=== PATIENT | female | born 1950 | race African-American/Black ===

== ENCOUNTER 2018-05-27 06:14 | Inpatient (IN) ==
[2018-05-27 07:07] LABS: Basophils # 0.1 10*3/uL (0.0-0.2); Basophils % 1.2 % (0.0-0.8); Eosinophils # 0.1 10*3/uL (0.0-0.87); Eosinophils % 1.9 % (0.00-10.9); Hematocrit 41.9 VOL% (35.7-47.0); Hemoglobin 13.1 GM/DL (12.0-16.0); Immature Granulocytes % 0.2 %; Immature Granulocytes Absolute 0.01 #; Lymphocytes # 2.4 10*3/uL (1.4-4.0); Lymphocytes % 42.8 % (21.3-54.2); Mean Corpuscular HGB Conc 31.3 GM/DL (32-36); Mean Corpuscular Hemoglobin 30 PG (27-34); Mean Corpuscular Volume 94.8 FL (87-102); Mean Platelet Volume 12.7 FL (9.6-12.0); Monocytes # 0.7 10*3/uL (0.11-0.8); Monocytes % 11.6 % (1.7-12.7); Neutrophils # 2.4 10*3/uL (1.4-7.4); Neutrophils % 42.3 % (38.7-73.9); Platelet Count 223 T/CUMM (130-400); Red Blood Count 4.42 MC/CUMM (3.8-5.5); Red Cell Distribution Width 14.4 % (9.3-17.3); White Blood Count 5.7 T/CUMM (4-12)
[2018-05-27] MEDS ORDERED: MIDAZOLAM 2 MG/2 ML VIAL ONE (07:35)
[2018-05-27] MEDS ORDERED: fentaNYL 100 MCG/2 ML VIAL ONE (07:35)
[2018-05-27] MEDS ORDERED: LIDOCAINE 1% 20 ML VIAL ONE (08:07)
[2018-05-27] MEDS ORDERED: HEPARIN/NACL 0.9% 2 UNITS/ML 500 ML IV ONE ×3 (08:07→09:47)
[2018-05-27 08:25] LABS: Apearance,Urine CLEAR (Clear); Bacteria,Urine Occasional /HPF (Few); Bilirubin,Urine Negative (Negative); Blood, Urine Negative (Negative); Glucose,Urine (UA) Negative (Negative); Ketones,Urine Negative (Negative); Nitrite,Urine Negative (Negative); Protein,Urine Negative; RBC,Urine <1 /HPF (0-4); Squamous Epithelial Cell,Urine Occasional /HPF (0-10); Urine Color Yellow (Yellow); Urine Specific Gravity 1.014 (1.001-1.035); Urine Urobilinogen < 2.0 EU/DL (0.2-1.0); WBC,Urine 1 /HPF (0-6)
[2018-05-27] MEDS ORDERED: ISOPROTERENOL 1 MG/5 ML VIAL IV ONE (08:51)
[2018-05-27] MEDS ORDERED: HEPARIN/NACL 0.9% 2 UNITS/ML 1,000 ML IV ONE ×2 (09:18→13:25)
[2018-05-27] MEDS ORDERED: HEPARIN DRIP 25,000 UNITS/500 ML PREMIX IV ONE (09:47)
[2018-05-27] MEDS ORDERED: ACETAMINOPHEN 325 MG TABLET PO PRN (11:15)
[2018-05-27] MEDS ORDERED: ZALEPLON 5 MG CAPSULE PO PRN (11:15)
[2018-05-27] MEDS ORDERED: MORPHINE 4 MG/1 ML VIAL IV PRN (11:15)
[2018-05-27] MEDS ORDERED: ASPIRIN EC 325 MG TABLET PO ONE (11:15)
[2018-05-27] MEDS ORDERED: MORPHINE 10 MG/1 ML VIAL ONE (12:14)
[2018-05-27] MEDS ORDERED: PROPOFOL 200 MG/20 ML VIAL IV ONE (12:36)
[2018-05-27] MEDS ORDERED: ONDANSETRON 4 MG/2 ML VIAL ONE (12:36)
[2018-05-27] MEDS ORDERED: HEPARIN 10,000 UNIT/10 ML VIAL ONE (12:36)
[2018-05-27] MEDS ORDERED: PHENYLEPHRINE 10 MG/1 ML VIAL IV ONE (12:36)
[2018-05-27] MEDS ORDERED: PHENYLEPHRINE 1 MG/10 ML SYRINGE IV ONE (12:37)
[2018-05-27] MEDS ORDERED: SODIUM CHLORIDE 0.9% 250 ML IV ONE (12:37)
[2018-05-27] MEDS ORDERED: GLYCOPYRROLATE 0.4 MG/2 ML VIAL ONE (12:37)
[2018-05-27] MEDS ORDERED: PROTAMINE SULFATE 50 MG/5 ML VIAL IV ONE (12:37)
[2018-05-27] MEDS ORDERED: ETOMIDATE 40 MG/20 ML VIAL IV ONE (12:37)
[2018-05-27] MEDS ORDERED: SEVOFLURANE 1 UNIT/15 MINUTE INH ONE (12:37)
[2018-05-27] MEDS ORDERED: FUROSEMIDE 40 MG/4 ML VIAL IV ONE (12:45)
[2018-05-27] MEDS ORDERED: AMIODARONE 450 MG/9 ML VIAL IV ONE (12:59)
[2018-05-27] MEDS ORDERED: AMIODARONE 150 MG/3 ML VIAL ONE (13:00)
[2018-05-27] MEDS ORDERED: AMIODARONE INJ 450 MG in DEXTROSE 5% 241 ML IV SCH ×2 (13:00→19:00)
[2018-05-27] MEDS: MORPHINE 4 MG/1 ML VIAL IV PRN (13:02)
[2018-05-27] MEDS ORDERED: AMIODARONE INJ 150 MG in DEXTROSE 5% 100 ML IV ONE ×2 (13:03→14:55)
[2018-05-27] MEDS ORDERED: HYDROmorphone 2 MG/1 ML VIAL IV PRN (13:06)
[2018-05-27] MEDS ORDERED: LIDOCAINE 1%/EPI INJ 20 ML VIAL ONE (13:25)
[2018-05-27] MEDS: ONDANSETRON 4 MG/2 ML VIAL IV PRN ×2 (13:25→20:05)
[2018-05-27] MEDS ORDERED: diphenhydrAMINE CAP 25 MG CAPSULE PO ONE (13:29)
[2018-05-27] MEDS ORDERED: DIAZEPAM 5 MG TABLET PO ONE (13:29)
[2018-05-27] MEDS ORDERED: DEXTROSE 5% NACL 0.45% 1,000 ML IV SCH (15:00)
[2018-05-27] MEDS: ENOXAPARIN 40 MG/0.4 ML SYRINGE SUBCUT SCH (16:02)
[2018-05-27] MEDS: MAGNESIUM OXIDE 400 MG TABLET PO SCH (16:03)
[2018-05-27] MEDS: GEMFIBROZIL 600 MG TABLET PO SCH (16:03)
[2018-05-27] MEDS: CARVEDILOL 12.5 MG TABLET PO SCH ×2 (18:33→20:40)
[2018-05-28 06:09] LABS: Basophils % 0.4 % (0.0-0.8); Eosinophils % 0.4 % (0.00-10.9); Hematocrit 41.6 VOL% (35.7-47.0); Hemoglobin 13.2 GM/DL (12.0-16.0); Immature Granulocytes % 0.5 %; Immature Granulocytes Absolute 0.03 #; Lymphocytes # 1.6 10*3/uL (1.4-4.0); Lymphocytes % 29.3 % (21.3-54.2); Mean Corpuscular HGB Conc 31.7 GM/DL (32-36); Mean Corpuscular Hemoglobin 30 PG (27-34); Mean Corpuscular Volume 93.5 FL (87-102); Mean Platelet Volume 13.9 FL (9.6-12.0); Monocytes # 0.7 10*3/uL (0.11-0.8); Monocytes % 11.8 % (1.7-12.7); Neutrophils # 3.2 10*3/uL (1.4-7.4); Neutrophils % 57.6 % (38.7-73.9); Platelet Count 173 T/CUMM (130-400); Red Blood Count 4.45 MC/CUMM (3.8-5.5); Red Cell Distribution Width 14.3 % (9.3-17.3); White Blood Count 5.6 T/CUMM (4-12)
[2018-05-28 06:33] LABS: Osmolality,Calculated 273.8 MOS/KG (273-304); Potassium 4.2 MMOL/L (3.5-5.1)
[2018-05-28] MEDS: ASPIRIN EC 81 MG TABLET PO SCH (08:14)
[2018-05-28] MEDS: MAGNESIUM OXIDE 400 MG TABLET PO SCH (08:14)
[2018-05-28] MEDS: CHOLECALCIFEROL 1,000 UNIT TABLET PO SCH (08:14)
[2018-05-28] MEDS: GEMFIBROZIL 600 MG TABLET PO SCH ×2 (08:15→15:42)
[2018-05-28] MEDS ORDERED: MEXILETINE 150 MG CAPSULE PO ONE (09:33)
[2018-05-28] MEDS: AMIODARONE 200 MG TABLET PO SCH ×2 (09:44→20:34)
[2018-05-28] MEDS: CARVEDILOL 12.5 MG TABLET PO SCH ×2 (10:19→20:35)
[2018-05-28] MEDS: MEXILETINE 150 MG CAPSULE PO SCH ×2 (13:02→21:03)
[2018-05-28] MEDS: AMIODARONE INJ 450 MG in DEXTROSE 5% 241 ML IV SCH (15:23)
[2018-05-28] MEDS: ENOXAPARIN 40 MG/0.4 ML SYRINGE SUBCUT SCH (15:42)
[2018-05-29] MEDS: ONDANSETRON 4 MG/2 ML VIAL IV PRN (00:05)
[2018-05-29 04:09] LABS: Basophils % 0.5 % (0.0-0.8); Eosinophils # 0.1 10*3/uL (0.0-0.87); Eosinophils % 1.4 % (0.00-10.9); Hematocrit 41.8 VOL% (35.7-47.0); Hemoglobin 13.2 GM/DL (12.0-16.0); Immature Granulocytes % 0.2 %; Immature Granulocytes Absolute 0.01 #; Lymphocytes # 2.3 10*3/uL (1.4-4.0); Mean Corpuscular HGB Conc 31.6 GM/DL (32-36); Mean Corpuscular Hemoglobin 30 PG (27-34); Mean Corpuscular Volume 93.9 FL (87-102); Mean Platelet Volume 13.1 FL (9.6-12.0); Monocytes # 0.7 10*3/uL (0.11-0.8); Monocytes % 12.4 % (1.7-12.7); Neutrophils # 2.6 10*3/uL (1.4-7.4); Neutrophils % 45.5 % (38.7-73.9); Platelet Count 195 T/CUMM (130-400); Red Blood Count 4.45 MC/CUMM (3.8-5.5); Red Cell Distribution Width 14.3 % (9.3-17.3); White Blood Count 5.8 T/CUMM (4-12)
[2018-05-29 04:33] LABS: Blood Urea Nitrogen 17 MG/DL (7-18); Calcium 8.9 MG/DL (8.5-10.1); Glucose 107 MG/DL (74-106); Osmolality,Calculated 280.4 MOS/KG (273-304); Sodium 140 MMOL/L (136-145)
[2018-05-29 04:51] LABS: Osmolality,Calculated 282.3 MOS/KG (273-304); Potassium 4.4 MMOL/L (3.5-5.1)
[2018-05-29] MEDS: MORPHINE 4 MG/1 ML VIAL IV PRN (05:29)
[2018-05-29] MEDS: MEXILETINE 150 MG CAPSULE PO SCH (05:32)
[2018-05-29] MEDS ORDERED: METOPROLOL TARTRATE 5 MG/5 ML VIAL IV ONE (05:36)
[2018-05-29] MEDS: AMIODARONE INJ 450 MG in DEXTROSE 5% 241 ML IV SCH (07:13)
[2018-05-29] MEDS ORDERED: MEXILETINE 200 MG CAPSULE PO SCH (07:31)
[2018-05-29] MEDS ORDERED: ceFAZolin 1,000 MG VIAL IRRIG ONE (09:00)
[2018-05-29] MEDS ORDERED: ceFAZolin 1,000 MG in SYRINGE 1 EACH IV ONE (09:00)
[2018-05-29] MEDS: ASPIRIN EC 81 MG TABLET PO SCH (10:15)
[2018-05-29] MEDS: GEMFIBROZIL 600 MG TABLET PO SCH ×2 (10:15→15:57)
[2018-05-29] MEDS: CARVEDILOL 12.5 MG TABLET PO SCH (10:16)
[2018-05-29] MEDS: MAGNESIUM OXIDE 400 MG TABLET PO SCH (10:16)
[2018-05-29] MEDS: CHOLECALCIFEROL 1,000 UNIT TABLET PO SCH (10:16)
[2018-05-29] MEDS ORDERED: TISSUE ADHESIVE 1 EACH APPLICATOR TOP ONE (11:56)
[2018-05-29] MEDS ORDERED: LIDOCAINE 1% 20 ML VIAL ONE (11:56)
[2018-05-29] MEDS ORDERED: ceFAZolin 1,000 MG VIAL ONE (11:56)
[2018-05-29] MEDS ORDERED: HEPARIN/NACL 0.9% 2 UNITS/ML 500 ML IV ONE (11:56)
[2018-05-29] MEDS ORDERED: DILTIAZEM 50 MG/10 ML VIAL IV ONE ×2 (13:50→13:55)
[2018-05-29] MEDS ORDERED: ePHEDrine 50 MG/ML AMP ONE (13:54)
[2018-05-29] MEDS ORDERED: MIDAZOLAM 2 MG/2 ML VIAL ONE (13:54)
[2018-05-29] MEDS ORDERED: fentaNYL 100 MCG/2 ML VIAL ONE (13:54)
[2018-05-29] MEDS ORDERED: LACTATED RINGERS 1,000 ML IV ONE (13:55)
[2018-05-29] MEDS ORDERED: ONDANSETRON 4 MG/2 ML VIAL ONE (13:55)
[2018-05-29] MEDS ORDERED: DILTIAZEM 25 MG/5 ML VIAL IV ONE (13:55)
[2018-05-29] MEDS ORDERED: PROPOFOL 500 MG/50 ML BOTTLE IV ONE (13:55)
[2018-05-29] MEDS ORDERED: LIDOCAINE 100 MG/5 ML SYRINGE ONE (14:14)
[2018-05-29] MEDS ORDERED: LIDOCAINE DRIP 2,000 MG/250 ML PREMIX IV ONE (14:18)
[2018-05-29] MEDS ORDERED: MAGNESIUM SULF RIDER 2 GM in PREMIX 1 EACH IV ONE (14:22)
[2018-05-29] MEDS ORDERED: LIDOCAINE 100 MG/5 ML SYRINGE IV ONE (14:29)
[2018-05-29] MEDS ORDERED: LIDOCAINE DRIP 2,000 MG/250 ML PREMIX IV SCH (14:30)
[2018-05-29] MEDS: ENOXAPARIN 40 MG/0.4 ML SYRINGE SUBCUT SCH (15:57)
[2018-05-29] MEDS: FUROSEMIDE 40 MG/4 ML VIAL IV SCH (15:57)
[2018-05-29] MEDS ORDERED: LORazepam 2 MG/1 ML VIAL IV PRN (18:15)
[2018-05-29] MEDS: ceFAZolin 1,000 MG in SYRINGE 1 EACH IV SCH (19:09)
[2018-05-29] MEDS: AMIODARONE 200 MG TABLET PO SCH (20:32)
[2018-05-29] MEDS: CARVEDILOL 25 MG TABLET PO SCH (20:32)
[2018-05-29] MEDS: CLORAZEPATE 3.75 MG TABLET PO PRN (20:32)
[2018-05-30] MEDS: ceFAZolin 1,000 MG in SYRINGE 1 EACH IV SCH (03:47)
[2018-05-30 04:25] LABS: Basophils % 0.5 % (0.0-0.8); Eosinophils % 0.2 % (0.00-10.9); Hematocrit 45.6 VOL% (35.7-47.0); Hemoglobin 14.4 GM/DL (12.0-16.0); Immature Granulocytes % 0.2 %; Immature Granulocytes Absolute 0.02 #; Lymphocytes # 1.5 10*3/uL (1.4-4.0); Lymphocytes % 16.3 % (21.3-54.2); Mean Corpuscular HGB Conc 31.6 GM/DL (32-36); Mean Corpuscular Hemoglobin 29 PG (27-34); Mean Corpuscular Volume 92.7 FL (87-102); Mean Platelet Volume 13.2 FL (9.6-12.0); Monocytes # 1.1 10*3/uL (0.11-0.8); Monocytes % 12.2 % (1.7-12.7); Neutrophils # 6.3 10*3/uL (1.4-7.4); Neutrophils % 70.6 % (38.7-73.9); Platelet Count 211 T/CUMM (130-400); Red Blood Count 4.92 MC/CUMM (3.8-5.5); Red Cell Distribution Width 14.1 % (9.3-17.3); White Blood Count 8.9 T/CUMM (4-12)
[2018-05-30 04:44] LABS: Calcium 9.4 MG/DL (8.5-10.1); Osmolality,Calculated 279.7 MOS/KG (273-304); Potassium 4.2 MMOL/L (3.5-5.1)
[2018-05-30 06:14] LABS: HIV Antigen/Antibody Result Nonreactive (Nonreactive); Hepatitis B Surface Ag Quant < 0.10 Index; Hepatitis B Surface Ag Result Negative (Negative); Hepatitis C Virus Ab Quant 0.07 Index; Hepatitis C Virus Ab Result Negative (Negative)
[2018-05-30] MEDS: GEMFIBROZIL 600 MG TABLET PO SCH ×2 (08:11→16:27)
[2018-05-30] MEDS: CLORAZEPATE 3.75 MG TABLET PO PRN ×2 (08:11→16:26)
[2018-05-30] MEDS: CARVEDILOL 25 MG TABLET PO SCH ×2 (08:11→20:14)
[2018-05-30] MEDS: CHOLECALCIFEROL 1,000 UNIT TABLET PO SCH (08:13)
[2018-05-30] MEDS: AMIODARONE 200 MG TABLET PO SCH (08:13)
[2018-05-30] MEDS: ASPIRIN EC 81 MG TABLET PO SCH (08:13)
[2018-05-30] MEDS: FLECAINIDE 100 MG TABLET PO SCH ×2 (09:33→20:14)
[2018-05-30] MEDS: MAGNESIUM OXIDE 400 MG TABLET PO SCH (09:38)
[2018-05-30] MEDS: FUROSEMIDE 40 MG/4 ML VIAL IV SCH ×3 (09:39→18:19)
[2018-05-30] MEDS: ENOXAPARIN 40 MG/0.4 ML SYRINGE SUBCUT SCH (16:27)
[2018-05-31 04:53] LABS: Basophils % 0.4 % (0.0-0.8); Eosinophils % 0.5 % (0.00-10.9); Hematocrit 39.7 VOL% (35.7-47.0); Hemoglobin 12.8 GM/DL (12.0-16.0); Immature Granulocytes % 0.2 %; Immature Granulocytes Absolute 0.02 #; Lymphocytes # 1.6 10*3/uL (1.4-4.0); Lymphocytes % 19.3 % (21.3-54.2); Mean Corpuscular HGB Conc 32.2 GM/DL (32-36); Mean Corpuscular Hemoglobin 30 PG (27-34); Mean Corpuscular Volume 92.5 FL (87-102); Mean Platelet Volume 12.8 FL (9.6-12.0); Monocytes # 1.2 10*3/uL (0.11-0.8); Monocytes % 13.7 % (1.7-12.7); Neutrophils # 5.6 10*3/uL (1.4-7.4); Neutrophils % 65.9 % (38.7-73.9); Platelet Count 178 T/CUMM (130-400); Red Blood Count 4.29 MC/CUMM (3.8-5.5); Red Cell Distribution Width 14.2 % (9.3-17.3); White Blood Count 8.4 T/CUMM (4-12)
[2018-05-31 05:08] LABS: Calcium 9.1 MG/DL (8.5-10.1); Osmolality,Calculated 273.1 MOS/KG (273-304); Potassium 3.8 MMOL/L (3.5-5.1)
[2018-05-31] MEDS: CARVEDILOL 25 MG TABLET PO SCH ×2 (09:23→21:39)
[2018-05-31] MEDS: GEMFIBROZIL 600 MG TABLET PO SCH ×2 (09:23→16:34)
[2018-05-31] MEDS: MAGNESIUM OXIDE 400 MG TABLET PO SCH (09:24)
[2018-05-31] MEDS: CLORAZEPATE 3.75 MG TABLET PO PRN ×2 (09:24→16:35)
[2018-05-31] MEDS: FLECAINIDE 100 MG TABLET PO SCH ×2 (09:25→21:40)
[2018-05-31] MEDS: CHOLECALCIFEROL 1,000 UNIT TABLET PO SCH (09:25)
[2018-05-31] MEDS: ASPIRIN EC 81 MG TABLET PO SCH (09:25)
[2018-05-31] MEDS: ENOXAPARIN 40 MG/0.4 ML SYRINGE SUBCUT SCH (16:34)
[2018-06-01 05:48] LABS: Basophils % 0.4 % (0.0-0.8); Eosinophils # 0.1 10*3/uL (0.0-0.87); Eosinophils % 0.5 % (0.00-10.9); Hematocrit 37.9 VOL% (35.7-47.0); Hemoglobin 11.9 GM/DL (12.0-16.0); Immature Granulocytes % 0.4 %; Immature Granulocytes Absolute 0.04 #; Lymphocytes % 21.9 % (21.3-54.2); Mean Corpuscular HGB Conc 31.4 GM/DL (32-36); Mean Corpuscular Hemoglobin 29 PG (27-34); Mean Corpuscular Volume 92.9 FL (87-102); Mean Platelet Volume 12.7 FL (9.6-12.0); Monocytes # 1.4 10*3/uL (0.11-0.8); Monocytes % 15.5 % (1.7-12.7); Neutrophils # 5.6 10*3/uL (1.4-7.4); Neutrophils % 61.3 % (38.7-73.9); Platelet Count 181 T/CUMM (130-400); Red Blood Count 4.08 MC/CUMM (3.8-5.5); Red Cell Distribution Width 14.1 % (9.3-17.3); White Blood Count 9.2 T/CUMM (4-12)
[2018-06-01 06:02] LABS: Calcium 9.3 MG/DL (8.5-10.1); Osmolality,Calculated 274.1 MOS/KG (273-304); Potassium 3.8 MMOL/L (3.5-5.1)
[2018-06-01] MEDS: GEMFIBROZIL 600 MG TABLET PO SCH ×2 (07:59→15:31)
[2018-06-01] MEDS: MAGNESIUM OXIDE 400 MG TABLET PO SCH (08:00)
[2018-06-01] MEDS: CHOLECALCIFEROL 1,000 UNIT TABLET PO SCH (08:00)
[2018-06-01] MEDS: CARVEDILOL 25 MG TABLET PO SCH ×2 (08:00→22:36)
[2018-06-01] MEDS: ASPIRIN EC 81 MG TABLET PO SCH (08:00)
[2018-06-01] MEDS: FLECAINIDE 100 MG TABLET PO SCH ×2 (08:00→22:35)
[2018-06-01] MEDS ORDERED: diphenhydrAMINE CAP 25 MG CAPSULE PO PRN (10:57)
[2018-06-01] MEDS ORDERED: MAGNESIUM HYDROXIDE SUSP 30 ML UDCUP PO PRN (10:57)
[2018-06-01] MEDS: ENOXAPARIN 40 MG/0.4 ML SYRINGE SUBCUT SCH (15:31)
[2018-06-02 04:30] LABS: Basophils % 0.7 % (0.0-0.8); Eosinophils # 0.1 10*3/uL (0.0-0.87); Eosinophils % 2.1 % (0.00-10.9); Hematocrit 36.9 VOL% (35.7-47.0); Hemoglobin 11.6 GM/DL (12.0-16.0); Immature Granulocytes % 0.3 %; Immature Granulocytes Absolute 0.02 #; Lymphocytes # 2.3 10*3/uL (1.4-4.0); Lymphocytes % 39.8 % (21.3-54.2); Mean Corpuscular HGB Conc 31.4 GM/DL (32-36); Mean Corpuscular Hemoglobin 29 PG (27-34); Mean Corpuscular Volume 93.2 FL (87-102); Mean Platelet Volume 12.4 FL (9.6-12.0); Monocytes # 0.8 10*3/uL (0.11-0.8); Monocytes % 12.9 % (1.7-12.7); Neutrophils # 2.6 10*3/uL (1.4-7.4); Neutrophils % 44.2 % (38.7-73.9); Platelet Count 195 T/CUMM (130-400); Red Blood Count 3.96 MC/CUMM (3.8-5.5); Red Cell Distribution Width 14.3 % (9.3-17.3); White Blood Count 5.8 T/CUMM (4-12)
[2018-06-02 04:51] LABS: Calcium 9.2 MG/DL (8.5-10.1); Osmolality,Calculated 279.5 MOS/KG (273-304); Potassium 4.2 MMOL/L (3.5-5.1)
[2018-06-02] MEDS: GEMFIBROZIL 600 MG TABLET PO SCH (08:43)
[2018-06-02] MEDS: CHOLECALCIFEROL 1,000 UNIT TABLET PO SCH (08:43)
[2018-06-02] MEDS: ASPIRIN EC 81 MG TABLET PO SCH (08:43)
[2018-06-02] MEDS: CARVEDILOL 25 MG TABLET PO SCH (08:43)
[2018-06-02] MEDS: MAGNESIUM OXIDE 400 MG TABLET PO SCH (08:43)
[2018-06-02] MEDS: FLECAINIDE 100 MG TABLET PO SCH (08:43)
[2018-06-02 12:48] VITALS: BP 124/74
== END 2018-06-02 14:32 | disposition home or self-care (01) | DRG 225 ==
LOC: N.CL 06:14 → N.TELES 12:39 → N.ICU 12:49 → N.TELES 06-01 13:50
PROVIDERS: ADMIT Internal Medicine Clinical Cardiac Electrophysiology; ATTEND Internal Medicine Clinical Cardiac Electrophysiology
PROC: CLEPAVT (ICD-10-PCS; 2018-05-27 07:45)
PROC: CLCCHCL (ICD-10-PCS; 2018-05-27 14:45)
PROC: CLDCICD (2018-05-29 12:15)

== ENCOUNTER 2018-06-05 10:11 | Inpatient (IN) ==
[2018-06-05] MEDS ORDERED: MAGNESIUM SULF RIDER 2 GM in PREMIX 1 EACH IV PRN (13:55)
[2018-06-05] MEDS ORDERED: POTASSIUM CHLORIDE RIDER 10 MEQ in PREMIX 1 EACH IV PRN (13:55)
[2018-06-05] MEDS ORDERED: MAGNESIUM SULF RIDER 4 GM in PREMIX 1 EACH IV PRN (13:55)
[2018-06-05] MEDS ORDERED: ACETAMINOPHEN 325 MG TABLET PO PRN ×2 (13:55→15:48)
[2018-06-05] MEDS ORDERED: ONDANSETRON 4 MG/2 ML VIAL IV PRN (13:55)
[2018-06-05] MEDS: ENOXAPARIN 40 MG/0.4 ML SYRINGE SUBCUT SCH (15:37)
[2018-06-05] MEDS ORDERED: AMIODARONE INJ 150 MG in DEXTROSE 5% 100 ML IV ONE (16:11)
[2018-06-05] MEDS ORDERED: AMIODARONE INJ 450 MG in DEXTROSE 5% 241 ML IV SCH (16:30)
[2018-06-05] MEDS ORDERED: ZALEPLON 5 MG CAPSULE PO PRN (16:43)
[2018-06-05] MEDS: GEMFIBROZIL 600 MG TABLET PO SCH (16:48)
[2018-06-05] MEDS ORDERED: CLORAZEPATE 3.75 MG TABLET PO PRN ×2 (17:50→17:59)
[2018-06-05 18:19] LABS: Basophils % 0.6 % (0.0-0.8); Eosinophils # 0.1 10*3/uL (0.0-0.87); Eosinophils % 1.8 % (0.00-10.9); Hematocrit 36.6 VOL% (35.7-47.0); Hemoglobin 11.5 GM/DL (12.0-16.0); Immature Granulocytes % 0.6 %; Immature Granulocytes Absolute 0.04 #; Lymphocytes # 2.7 10*3/uL (1.4-4.0); Lymphocytes % 39.6 % (21.3-54.2); Mean Corpuscular HGB Conc 31.4 GM/DL (32-36); Mean Corpuscular Hemoglobin 30 PG (27-34); Mean Corpuscular Volume 94.1 FL (87-102); Mean Platelet Volume 12.5 FL (9.6-12.0); Monocytes # 0.6 10*3/uL (0.11-0.8); Monocytes % 8.9 % (1.7-12.7); Neutrophils # 3.3 10*3/uL (1.4-7.4); Neutrophils % 48.5 % (38.7-73.9); Platelet Count 260 T/CUMM (130-400); Red Blood Count 3.89 MC/CUMM (3.8-5.5); Red Cell Distribution Width 14.3 % (9.3-17.3); White Blood Count 6.7 T/CUMM (4-12)
[2018-06-05 18:45] LABS: Alanine Aminotransferase 21 U/L (13-56); Albumin 3.1 G/DL (3.4-5.0); Alkaline Phosphatase 97 U/L (45-117); Aspartate Amino Transferase 19 U/L (0-37); Bilirubin,Total < 0.39 MG/DL (0.2-1.0); Blood Urea Nitrogen 24 MG/DL (7-18); Calcium 9.3 MG/DL (8.5-10.1); Glucose 126 MG/DL (74-106); Osmolality,Calculated 282.5 MOS/KG (273-304); Potassium 4.6 MMOL/L (3.5-5.1); Sodium 139 MMOL/L (136-145); Total Protein 6.8 G/DL (6.4-8.3)
[2018-06-05 18:47] LABS: Troponin I 0.018 NG/ML (0.00-0.045)
[2018-06-05] MEDS: CARVEDILOL 25 MG TABLET PO SCH (21:00)
[2018-06-05] MEDS: MAGNESIUM OXIDE 400 MG TABLET PO SCH (22:04)
[2018-06-05] MEDS: DOCUSATE SODIUM 100 MG CAPSULE PO PRN (22:05)
[2018-06-05] MEDS: AMIODARONE INJ 450 MG in DEXTROSE 5% 241 ML IV SCH (22:32)
[2018-06-06 02:47] LABS: Basophils # 0.1 10*3/uL (0.0-0.2); Eosinophils # 0.1 10*3/uL (0.0-0.87); Eosinophils % 1.9 % (0.00-10.9); Hematocrit 35.3 VOL% (35.7-47.0); Hemoglobin 11.1 GM/DL (12.0-16.0); Immature Granulocytes % 0.6 %; Immature Granulocytes Absolute 0.04 #; Lymphocytes # 2.8 10*3/uL (1.4-4.0); Lymphocytes % 43.7 % (21.3-54.2); Mean Corpuscular HGB Conc 31.4 GM/DL (32-36); Mean Corpuscular Hemoglobin 30 PG (27-34); Mean Corpuscular Volume 93.9 FL (87-102); Monocytes # 0.8 10*3/uL (0.11-0.8); Monocytes % 12.6 % (1.7-12.7); Neutrophils # 2.5 10*3/uL (1.4-7.4); Neutrophils % 40.2 % (38.7-73.9); Platelet Count 234 T/CUMM (130-400); Red Blood Count 3.76 MC/CUMM (3.8-5.5); Red Cell Distribution Width 14.3 % (9.3-17.3); White Blood Count 6.3 T/CUMM (4-12)
[2018-06-06] MEDS: AMIODARONE INJ 450 MG in DEXTROSE 5% 241 ML IV SCH ×3 (02:50→22:04)
[2018-06-06 03:08] LABS: Osmolality,Calculated 282.4 MOS/KG (273-304); Potassium 4.3 MMOL/L (3.5-5.1)
[2018-06-06] MEDS: CARVEDILOL 25 MG TABLET PO SCH ×2 (09:38→21:59)
[2018-06-06] MEDS: CHOLECALCIFEROL 1,000 UNIT TABLET PO SCH (09:38)
[2018-06-06] MEDS: MAGNESIUM OXIDE 400 MG TABLET PO SCH ×2 (09:38→21:59)
[2018-06-06] MEDS: ASPIRIN EC 81 MG TABLET PO SCH (09:39)
[2018-06-06] MEDS: PANTOPRAZOLE 40 MG TABLET PO SCH (09:39)
[2018-06-06] MEDS: GEMFIBROZIL 600 MG TABLET PO SCH ×2 (09:39→15:36)
[2018-06-06] MEDS: FUROSEMIDE 40 MG TABLET PO SCH (13:03)
[2018-06-06] MEDS: cefTRIAXone 1,000 MG in SYRINGE 1 EACH IV SCH (13:03)
[2018-06-06] MEDS: ENOXAPARIN 40 MG/0.4 ML SYRINGE SUBCUT SCH (15:36)
[2018-06-07] MEDS ORDERED: AMIODARONE 200 MG TABLET PO ONE (01:40)
[2018-06-07 06:12] LABS: Basophils # 0.1 10*3/uL (0.0-0.2); Basophils % 0.7 % (0.0-0.8); Eosinophils # 0.1 10*3/uL (0.0-0.87); Eosinophils % 1.3 % (0.00-10.9); Hematocrit 35.9 VOL% (35.7-47.0); Hemoglobin 11.2 GM/DL (12.0-16.0); Immature Granulocytes % 0.7 %; Immature Granulocytes Absolute 0.05 #; Lymphocytes # 1.9 10*3/uL (1.4-4.0); Lymphocytes % 25.5 % (21.3-54.2); Mean Corpuscular HGB Conc 31.2 GM/DL (32-36); Mean Corpuscular Hemoglobin 29 PG (27-34); Mean Corpuscular Volume 93.5 FL (87-102); Mean Platelet Volume 12.3 FL (9.6-12.0); Monocytes % 12.9 % (1.7-12.7); Neutrophils # 4.4 10*3/uL (1.4-7.4); Neutrophils % 58.9 % (38.7-73.9); Platelet Count 275 T/CUMM (130-400); Red Blood Count 3.84 MC/CUMM (3.8-5.5); Red Cell Distribution Width 14.3 % (9.3-17.3); White Blood Count 7.5 T/CUMM (4-12)
[2018-06-07 06:40] LABS: Osmolality,Calculated 281.4 MOS/KG (273-304); Potassium 4.4 MMOL/L (3.5-5.1)
[2018-06-07] MEDS: CHOLECALCIFEROL 1,000 UNIT TABLET PO SCH (09:32)
[2018-06-07] MEDS: PANTOPRAZOLE 40 MG TABLET PO SCH (09:33)
[2018-06-07] MEDS: FUROSEMIDE 40 MG TABLET PO SCH (09:33)
[2018-06-07] MEDS: CARVEDILOL 25 MG TABLET PO SCH ×2 (09:33→20:54)
[2018-06-07] MEDS: ASPIRIN EC 81 MG TABLET PO SCH (09:33)
[2018-06-07] MEDS: MAGNESIUM OXIDE 400 MG TABLET PO SCH ×2 (09:33→20:53)
[2018-06-07] MEDS: GEMFIBROZIL 600 MG TABLET PO SCH ×2 (09:33→15:32)
[2018-06-07] MEDS: AMIODARONE INJ 450 MG in DEXTROSE 5% 241 ML IV SCH (09:34)
[2018-06-07] MEDS: LISINOPRIL 5 MG TABLET PO SCH (09:34)
[2018-06-07] MEDS: cefTRIAXone 1,000 MG in SYRINGE 1 EACH IV SCH (12:04)
[2018-06-07] MEDS: ENOXAPARIN 40 MG/0.4 ML SYRINGE SUBCUT SCH (15:24)
[2018-06-08 06:32] LABS: Basophils # 0.1 10*3/uL (0.0-0.2); Basophils % 0.8 % (0.0-0.8); Eosinophils # 0.1 10*3/uL (0.0-0.87); Eosinophils % 1.8 % (0.00-10.9); Hematocrit 37.4 VOL% (35.7-47.0); Hemoglobin 11.7 GM/DL (12.0-16.0); Immature Granulocytes % 0.9 %; Immature Granulocytes Absolute 0.06 #; Lymphocytes # 1.9 10*3/uL (1.4-4.0); Lymphocytes % 29.7 % (21.3-54.2); Mean Corpuscular HGB Conc 31.3 GM/DL (32-36); Mean Corpuscular Hemoglobin 30 PG (27-34); Mean Corpuscular Volume 94.7 FL (87-102); Mean Platelet Volume 11.3 FL (9.6-12.0); Monocytes # 0.8 10*3/uL (0.11-0.8); Neutrophils # 3.6 10*3/uL (1.4-7.4); Neutrophils % 54.8 % (38.7-73.9); Platelet Count 292 T/CUMM (130-400); Red Blood Count 3.95 MC/CUMM (3.8-5.5); Red Cell Distribution Width 14.2 % (9.3-17.3); White Blood Count 6.5 T/CUMM (4-12)
[2018-06-08 06:53] LABS: Calcium 9.3 MG/DL (8.5-10.1); Osmolality,Calculated 283.3 MOS/KG (273-304); Potassium 4.1 MMOL/L (3.5-5.1)
[2018-06-08] MEDS ORDERED: AMIODARONE 200 MG TABLET PO SCH (09:00)
[2018-06-08] MEDS: GEMFIBROZIL 600 MG TABLET PO SCH ×2 (09:42→16:30)
[2018-06-08] MEDS: cefTRIAXone 1,000 MG in SYRINGE 1 EACH IV SCH (11:36)
[2018-06-08] MEDS: CHOLECALCIFEROL 1,000 UNIT TABLET PO SCH (11:36)
[2018-06-08] MEDS: ASPIRIN EC 81 MG TABLET PO SCH (11:36)
[2018-06-08] MEDS: PANTOPRAZOLE 40 MG TABLET PO SCH (11:36)
[2018-06-08] MEDS: LISINOPRIL 5 MG TABLET PO SCH (11:36)
[2018-06-08] MEDS ORDERED: HEPARIN/NACL 0.9% 2 UNITS/ML 500 ML IV ONE ×4 (12:08→14:22)
[2018-06-08] MEDS ORDERED: ceFAZolin 1,000 MG VIAL ONE (12:30)
[2018-06-08] MEDS ORDERED: LIDOCAINE 1% 20 ML VIAL ONE ×2 (12:30→14:25)
[2018-06-08] MEDS ORDERED: ISOPROTERENOL 1 MG/5 ML VIAL IV ONE (12:49)
[2018-06-08] MEDS ORDERED: HEPARIN/NACL 0.9% 2 UNITS/ML 1,000 ML IV ONE (12:53)
[2018-06-08] MEDS ORDERED: HEPARIN DRIP 25,000 UNITS/500 ML PREMIX IV ONE (12:54)
[2018-06-08] MEDS ORDERED: AMINOPHYLLINE 500 MG in SODIUM CHLORIDE 0.9% 480 ML IV SCH (13:30)
[2018-06-08 13:33] LABS: Apearance,Urine Clear (Clear); Urine Color Yellow (Yellow)
[2018-06-08 13:34] LABS: Bilirubin,Urine Negative (Negative); Blood, Urine Negative (Negative); Glucose,Urine (UA) Negative (Negative); Ketones,Urine Negative (Negative); Nitrite,Urine Negative (Negative); Protein,Urine 100 MG/DL; Urine Specific Gravity 1.015 (1.001-1.035)
[2018-06-08 13:35] LABS: Bacteria,Urine Few /HPF (Few); RBC,Urine Rare /HPF (0-4); Squamous Epithelial Cell,Urine Few /HPF (0-10); WBC,Urine 75 /HPF (0-6)
[2018-06-08] MEDS ORDERED: MORPHINE 4 MG/1 ML VIAL IV PRN (16:38)
[2018-06-08] MEDS ORDERED: CLORAZEPATE 7.5 MG TABLET PO PRN (16:40)
[2018-06-08] MEDS ORDERED: HEPARIN 10,000 UNIT/10 ML VIAL ONE (17:15)
[2018-06-08] MEDS ORDERED: fentaNYL 100 MCG/2 ML VIAL ONE (17:15)
[2018-06-08] MEDS ORDERED: PROPOFOL 200 MG/20 ML VIAL IV ONE (17:15)
[2018-06-08] MEDS ORDERED: SEVOFLURANE 1 UNIT/15 MINUTE INH ONE (17:15)
[2018-06-08] MEDS ORDERED: PROTAMINE SULFATE 50 MG/5 ML VIAL IV ONE (17:16)
[2018-06-08] MEDS ORDERED: GLYCOPYRROLATE 0.4 MG/2 ML VIAL ONE (17:16)
[2018-06-08] MEDS ORDERED: AMIODARONE 150 MG/3 ML VIAL ONE (17:16)
[2018-06-08] MEDS ORDERED: KETOROLAC 30 MG/1 ML VIAL ONE (17:16)
[2018-06-08] MEDS ORDERED: ePHEDrine 50 MG/ML AMP ONE (17:16)
[2018-06-08] MEDS ORDERED: ETOMIDATE 40 MG/20 ML VIAL IV ONE (17:16)
[2018-06-08] MEDS ORDERED: FUROSEMIDE 20 MG/2 ML VIAL ONE (17:16)
[2018-06-08] MEDS ORDERED: ROCURONIUM 100 MG/10 ML VIAL IV ONE (17:17)
[2018-06-08] MEDS ORDERED: NEOSTIGMINE 10 MG/10 ML VIAL ONE (17:17)
[2018-06-08] MEDS ORDERED: SODIUM CHLORIDE 0.9% 1,000 ML IV ONE (17:17)
[2018-06-08] MEDS: MAGNESIUM OXIDE 400 MG TABLET PO SCH ×2 (18:36→22:18)
[2018-06-08] MEDS: ENOXAPARIN 40 MG/0.4 ML SYRINGE SUBCUT SCH (19:05)
[2018-06-08] MEDS: FUROSEMIDE 40 MG/4 ML VIAL IV SCH (19:13)
[2018-06-08] MEDS: VERAPAMIL 80 MG TABLET PO SCH (22:18)
[2018-06-08] MEDS: CARVEDILOL 25 MG TABLET PO SCH (22:18)
[2018-06-09 04:27] LABS: Basophils % 0.6 % (0.0-0.8); Eosinophils # 0.1 10*3/uL (0.0-0.87); Eosinophils % 1.4 % (0.00-10.9); Hematocrit 37.8 VOL% (35.7-47.0); Immature Granulocytes % 1.1 %; Immature Granulocytes Absolute 0.07 #; Lymphocytes # 1.7 10*3/uL (1.4-4.0); Lymphocytes % 27.2 % (21.3-54.2); Mean Corpuscular HGB Conc 31.7 GM/DL (32-36); Mean Corpuscular Hemoglobin 30 PG (27-34); Mean Corpuscular Volume 93.8 FL (87-102); Mean Platelet Volume 11.5 FL (9.6-12.0); Monocytes # 0.6 10*3/uL (0.11-0.8); Monocytes % 8.6 % (1.7-12.7); Neutrophils # 3.9 10*3/uL (1.4-7.4); Neutrophils % 61.1 % (38.7-73.9); Platelet Count 297 T/CUMM (130-400); Red Blood Count 4.03 MC/CUMM (3.8-5.5); Red Cell Distribution Width 14.3 % (9.3-17.3); White Blood Count 6.4 T/CUMM (4-12)
[2018-06-09 04:44] LABS: Calcium 9.1 MG/DL (8.5-10.1); Osmolality,Calculated 280.4 MOS/KG (273-304)
[2018-06-09] MEDS: VERAPAMIL 80 MG TABLET PO SCH ×3 (05:40→21:32)
[2018-06-09] MEDS: FUROSEMIDE 40 MG/4 ML VIAL IV SCH (05:40)
[2018-06-09] MEDS: CHOLECALCIFEROL 1,000 UNIT TABLET PO SCH (09:52)
[2018-06-09] MEDS: ASPIRIN EC 81 MG TABLET PO SCH (09:53)
[2018-06-09] MEDS: GEMFIBROZIL 600 MG TABLET PO SCH ×2 (09:53→15:49)
[2018-06-09] MEDS: PANTOPRAZOLE 40 MG TABLET PO SCH (09:54)
[2018-06-09] MEDS: LISINOPRIL 5 MG TABLET PO SCH (09:54)
[2018-06-09] MEDS: CARVEDILOL 25 MG TABLET PO SCH ×2 (09:54→21:32)
[2018-06-09] MEDS: MAGNESIUM OXIDE 400 MG TABLET PO SCH ×2 (11:43→21:31)
[2018-06-09] MEDS: APIXABAN 2.5 MG TABLET PO SCH ×2 (11:43→21:31)
[2018-06-09] MEDS: cefTRIAXone 1,000 MG in SYRINGE 1 EACH IV SCH (11:44)
[2018-06-09] MEDS ORDERED: FUROSEMIDE 40 MG TABLET PO SCH (16:00)
[2018-06-10] MEDS: VERAPAMIL 80 MG TABLET PO SCH (04:28)
[2018-06-10 06:24] VITALS: BP 95/50
[2018-06-10] MEDS ORDERED: LISINOPRIL 5 MG TABLET PO SCH (07:40)
[2018-06-10] MEDS ORDERED: FUROSEMIDE 40 MG TABLET PO SCH (09:00)
[2018-06-10] MEDS ORDERED: DILTIAZEM CD 120 MG CAPSULE PO SCH (09:00)
[2018-06-10] MEDS: MAGNESIUM OXIDE 400 MG TABLET PO SCH (10:35)
[2018-06-10] MEDS: DOCUSATE SODIUM 100 MG CAPSULE PO PRN (10:36)
[2018-06-10] MEDS: GEMFIBROZIL 600 MG TABLET PO SCH (10:36)
[2018-06-10] MEDS: CHOLECALCIFEROL 1,000 UNIT TABLET PO SCH (10:37)
[2018-06-10] MEDS: APIXABAN 2.5 MG TABLET PO SCH (10:37)
[2018-06-10] MEDS: ASPIRIN EC 81 MG TABLET PO SCH (10:38)
[2018-06-10] MEDS: PANTOPRAZOLE 40 MG TABLET PO SCH (10:38)
[2018-06-10] MEDS: CARVEDILOL 25 MG TABLET PO SCH (10:38)
== END 2018-06-10 11:05 | disposition home or self-care (01) | DRG 274 ==
LOC: N.TELEN 13:30 → INTOOBSV 13:30
PROVIDERS: ADMIT Internal Medicine Clinical Cardiac Electrophysiology; ATTEND Internal Medicine Clinical Cardiac Electrophysiology
PROC: CLEPAVT (ICD-10-PCS; 2018-06-08 10:45)